=== PATIENT | male | born 1980 | race Caucasian/White ===

== ENCOUNTER 2020-04-28 11:36 | Emergency (ER) | payer OTHER, SELFPAY ==
--- NOTE | ~2020-04-28 | CT_ITS ---
EXAMINATION: CT brain wo con DATE: 04/28/2020 12:28 INDICATION: Headache and altered mental status and blurred vision. TECHNIQUE: Computed tomography (CT) of the head was performed without intravenous contrast. Sagittal and coronal reconstructions were performed. The mA was adjusted according to patient size. Iterative reconstruction technique was employed. The dose-length product was 605.33 mGy-cm. COMPARISON: head CT dated 10/04/14 FINDINGS: There is prominent white matter vasogenic edema which appears to spare the gary matter in the left fr ontal lobe. This surrounds an isodense intra-axial mass in the left frontal lobe which in places is d ifficult to differentiate from the gary matter but appears to measure approximately 2.8 x 2.4 x 2.1 c m. There is significant and effacement of local mass effect with distortion of the left lateral ventr icle with effacement of both the anterior and temporal horns and with up to 1.6 cm leftward displacem ent of the septum pellucidum between the anterior horns of the lateral ventricles. There is mild dila tion of the temporal horn of the right lateral ventricle as well as asymmetric widening of the left a mbient and prepontine cisterns consistent with at least some degree of uncal herniation. No acute int racranial hemorrhage, acute infarction or abnormal extra axial fluid collection. The orbits, paranasa l sinuses and mastoid air cells are normal. IMPRESSION: 1. Prominent vasogenic edema surrounding approximately 2-3 cm mass in the left frontal lobe. This res ults in significant local mass effect including anterior left right transtentorial and left-sided unc al herniation for which urgent neurosurgical consultation would be indicated. The masses concerning f or malignancy which could be either primary or metastatic and would consider pre and postcontrast bra in MRI for more definitive determination as clinically indicated. Dr. Colin discussed these findin gs with Dr. Cruz at 12:35 PM. Reviewed, dictated and finalized at location A. IMPRESSION: 1. Prominent vasogenic edema surrounding approximately 2-3 cm mass in the left frontal lobe. This results in significant local mass effect including anterior left right transtentorial and left-sided uncal herniation for which urgent neur osurgical consultation would be indicated. The masses concerning for malignancy which could be either primary or metastatic and would consider pre and postcon trast brain MRI for more definitive determination as clinically indicated. Dr. Colin discussed these findings with Dr. Cruz at 12:35 PM.
--- NOTE | ~2020-04-28 | XR_ITS ---
EXAMINATION: XR chest 1V EXAM DATE: 04/28/2020 12:30 INDICATION: Episodes of confusion. TECHNIQUE: Portable AP frontal chest x-ray was obtained. Comparison is made to prior examination from 10/04/2014. FINDINGS: The lungs are clear. There are no pleural effusions. The cardiomediastinal silhouette is within normal limits. There is no pneumothorax suspected. The bones and soft tissues are unremarkab le. There are cholecystectomy clips. There is no significant interval change. IMPRESSION: Unremarkable chest x-ray exam. Reviewed, dictated and finalized at location B.
[2020-04-28 11:38] VITALS: BP 140/79; PULSE 94; RESP 20; TEMP 36.7; O2SAT 99
--- NOTE | 2020-04-28 12:07 | ECG_ITS ---
Measurements Intervals N[place]el Rate: 76 P: 31 UT: 144 QRS: 17 QRSD: 97 T: -2 QT: 364 QTc: 410 Interpretive Statements SINUS RHYTHM BORDERLINE ST-T WAVE ABNORMALITY- INFERIOR LEADS BORDERLINE ECG Electronically Signed On 04-28-2020 12:23:05 CDT by Kalyan Varghese D.O.
[2020-04-28 12:28] LABS: Basophils Absolute Auto 0.1 K/mm3 (0.0-0.1); Basophils Percent Auto 0.7 % (0.2-1.2); Eosinophils Percent Auto 0.1 % (0-4.4); Hematocrit 49.2 % (42.0-52.0); Hemoglobin 16.2 g/dL (14.0-18.0); Immature Granulocyte Absolute 0.02 K/mm3 (0.00-0.031); Immature Granulocyte Percent A 0.3 % (0-0.5); Lymphocytes Absolute Auto 0.61 K/mm3 (0.9-3.2); Lymphocytes Percent Auto 8.6 % (18.3-44.2); Mean Corpuscular HGB Conc 32.9 g/dl (32-36); Mean Corpuscular Hemoglobin 29.4 pg (26-34); Mean Corpuscular Volume 89.3 fl (80-100); Mean Platelet Volume 10.5 fl (7.4-10.4); Monocytes Absolute Auto 0.4 K/mm3 (0.1-0.6); Neutrophils Percent Auto 84.3 % (45.5-73.1); Platelet Count Result 207 k/mm3 (150-375); Red Blood Count 5.51 M/mm3 (4.6-6.20); Red Cell Distribution Width 13.2 % (11.5-14.5); White Blood Count 7.1 K/mm3 (4.5-10.0)
[2020-04-28] MEDS: ONDANSETRON INJ 4 MG/2 ML VIAL IV PUSH ×2 (12:36→13:34)
[2020-04-28] MEDS: SODIUM CHLORIDE 0.9% IV 1,000 ML 999 ML IV CONT ×2 (12:36→13:34)
[2020-04-28 12:38] LABS: Prothrombin Time 13.1 Seconds (11.1-14.7)
[2020-04-28 12:39] LABS: Alanine Aminotransferase 74 U/L (4-50); Albumin Level 4.8 g/dL (3.5-5.1); Alkaline Phosphatase 77 U/L (38-126); Anion Gap 10 mmol/L (8-16); Aspartate Amino Transferase 35 U/L (17-59); Bilirubin,Total 0.9 mg/dL (0.2-1.3); Blood Urea Nitrogen 12 mg/dL (9-20); Carbon Dioxide 31 mmol/L (22-30); Chloride 101 mmol/L (98-107); Estimated CRCL calculation 80 ml/min; Estimated Glomerular Filt Rate > 60; Glucose 109 mg/dL (75-110); Partial Thromboplastin Time 29.5 SECONDS (22.3-36.8); Potassium 4.3 mmol/L (3.4-5.0); Sodium 142 mmol/L (137-145)
--- NOTE | 2020-04-28 12:42 | ED.NEUROSD ---
HPI - Neuro Symptoms/Deficit General Chief Complaint: Neuro Symptoms/Deficit Stated Complaint: periods of confusion Time Seen by Provider: 04/28/20 11:52 Source: patient and family Mode of arrival: ambulatory Limitations: no limitations History of Present Illness HPI Narrative: This patient is a 39 year old male previously healthy who presents for evaluation for headache and confusion. His states patient has been feeling fatigue for 2-3 months. He was assessed by his primary care physician with labs and they were unremarkable. She states this morning he woke up with a headache, nausea and vomiting at 8 am . She states she got a phone call that he did not show up for work. She found him at home confused. She reports he was having difficulty figuring out how to tie his shoes. Patient reports mild frontal headache and nausea. He denies numbness , tingling or focal weakness. HE denies chest pain, sob or abdominal pain. Related Data Home Medications Medication Instructions Recorded Confirmed No Home Medications 04/28/20 04/28/20 Allergies Allergy/AdvReac Type Severity Reaction Status Date / Time erythromycin base Allergy Unknown Rash Verified 04/28/20 11:54 Review of Systems Review of Systems: All systems reviewed & are unremarkable except as noted in HPI and below Constitutional: Constitutional: Reports fatigue ENT: Denies nasal congestion and Denies sore throat Cardiovascular: Cardiovascular: Denies chest pain Respiratory: Respiratory: Denies cough and Denies dyspnea Neurologic: Reports headache(s) PMFSH Past Medical History Medical History (Updated 04/28/20 @ 19:07 by Aggie Cruz MD) Patient denies medical problems Surgical History Surgical History (Updated 04/28/20 @ 13:06 by Aggie Cruz MD) Hx of cholecystectomy Social History Social History (Updated 04/28/20 @ 13:06 by Aggie Cruz MD) Smoking status: Never smoker Alcohol intake: never Substance use: never Exam Const: General: no acute distress Orientation/consciousness: patient oriented x3 HENMT: Head: normocephalic and atraumatic Face and sinus: face symmetric Mouth: Yes Normal oral and palatal mucosa present, Yes lip normal, Yes oropharynx normal and Yes moist mucous membranes Eyes: Pupils: Equal, round and reactive pupils present EOM: EOMs intact bilaterally Chest: Chest palpation & inspection: normal inspection of the chest Resp: Effort & Inspection: normal respiratory effort and no retractions Auscultation: clear to auscultation bilaterally GI: GI Palp: Yes Soft to palpation, No Tenderness to palpation present (GI), No Guarding due to palpation present (GI) and No Rigid due to palpation Neuro: General: patient oriented x3, moves all extremities, no meningeal signs and CN's II-XI intact bilaterally Speech: normal speech Psych: Mental Status: mental status grossly normal Affect: normal affect Course Reevaluation(s) Reevaluation #1: I have discussed with patient and his CT findings and he should be transferred to higher level with neurosurgery. They request to go to [facility]. Date: 04/28/20 Time: 13:00 Reevaluation #2: PAtient is sleeping but he continued to be oriented. Date: 04/28/20 Time: 15:00 Consultations Consultation #1: I discussed patient case and CT with DR. Lagunas. He also reviewed cT. HE accepts patient to the floor on neurosurgery service. He agrees with patient getting solumedrol and keppra. Date: 04/28/20 Time: 13:15 Vital Signs Vital signs: Vital Signs Temperature 98.1 F 04/28/20 11:38 Pulse Rate 94 04/28/20 11:38 Respiratory Rate 20 04/28/20 11:38 Blood Pressure 140/79 04/28/20 11:38 Pulse Oximetry 99 04/28/20 11:38 Temperature 98.1 F 04/28/20 11:38 Pulse Rate 70 04/28/20 17:12 Respiratory Rate 18 04/28/20 17:12 Blood Pressure 125/74 04/28/20 17:12 Pulse Oximetry 100 04/28/20 17:12 MDM - Neuro Symptoms/Deficit La
[2020-04-28 12:48] LABS: Ethanol < 10 mg/dL (<10)
[2020-04-28 12:51] LABS: Troponin I < 0.012 ng/mL (0.000-0.034)
[2020-04-28] MEDS: levETIRAcetam 1000MG/NACL100ML 1,000 MG/100 ML BAG 400 MG IVPB (13:38)
[2020-04-28 14:00] VITALS: BP 126/86; PULSE 74; RESP 21; O2SAT 100
--- NOTE | 2020-04-28 15:23 | PC.NURSE ---
Asked pt for urine sample, left urinal at bedside
[2020-04-28 16:00] LABS: Glucose Point of Care 92 (65-105)
[2020-04-28 16:22] LABS: Add Urine Microscopic? NO; Appearance Urine Clear (Clear); Bilirubin Urine Negative (Negative); Blood Urine Negative (Negative); Color Urine Yellow (Yellow); Glucose Urine UA Negative (Negative); Ketones Urine Negative (Negative); Leukocyte Esterase Ur Negative LEU/UL (Negative); Nitrate Urine Negative (Negative); Protein Urine Negative (Negative); Specific Grav Ur 1.015 (1.001-1.035); Urobilinogen Urine Negative mg/dL (<2.0)
[2020-04-28 16:46] LABS: Amphetamine Screen Urine Negative (Negative); Barbiturate Screen Urine Negative (Negative); Benzodiazepines Screen Urine Negative (Negative); Cannabinoid Screen Urine Negative (Negative); Cocaine Screen Urine Negative (Negative); Methadone Screen Urine Negative (Negative); Opiate Screen Urine Negative (Negative); Phencyclidine Screen Urine Negative (Negative)
[2020-04-28 17:12] VITALS: BP 125/74; PULSE 70; RESP 18; O2SAT 100
== END 2020-04-28 19:11 | disposition short-term general hospital (02) ==
PROVIDERS: Emergency Provider General Practice
DX: G93.9 Disorder of brain, unspecified (principal); R94.31 Abnormal electrocardiogram [ECG] [EKG]
CPT/HCPCS: 36415; 51701; 70450; 71045; 80053; 80307; 81003; 82948; 84443; 84484; 85025; 85610; 85730; 93005; 96361; 96374; 96375; 99285; J1100; J1953; J2405; J7030

== ENCOUNTER → 2020-11-02 15:40 | Outpatient (CLI) | payer OTHER, SELFPAY ==
--- NOTE | ~2020-11-02 | MR_ITS ---
In EXAMINATION: MR brain/brain stem wo/w con DATE: 11/02/2020 16:56 INDICATION: Meningioma. TECHNIQUE: Magnetic resonance imaging (MRI) of the brain and brainstem was performed without and with 20 mL MultiHance intravenous contrast. Sequences included sagittal and axial T1-weighted FSE, axial diffusion-weighted FS EPI, axial T2*-weighted GRE, axial T2-weighted FLAIR Propeller, and axial T2-we ighted Propeller. Postcontrast sequences included axial, sagittal, and coronal T1-weighted FSE. Appar ent diffusion coefficient (ADC) maps were created. COMPARISON: Head CT 04/28/2020 FINDINGS: There are changes of left frontal lobe mass resection with old blood products in the resect ion bed. There is a thick layer of enhancement overlying the brain at the site of resection. There is no acute ischemic infarct. 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 The ventricles are normal in size. The orbits are normal. The paranasal sinuses are clear. The mastoi d air cells are normal. IMPRESSION: 1. Changes of left frontal lobe mass resection. A thick layer of enhancement overlying the brain at t he site of the resection may be granulation tissue. Residual or recurrent neoplasm cannot be excluded . Reviewed, dictated and finalized at location A. IMPRESSION: 1. Changes of left frontal lobe mass resection. A thick layer of enhancement ov erlying the brain at the site of the resection may be granulation tissue. Resid ual or recurrent neoplasm cannot be excluded.
[2020-11-02 16:09] LABS: Estimated Glomerular Filt Rate 56
== END ==
DX: D32.9 Benign neoplasm of meninges, unspecified (principal)
CPT/HCPCS: 70553; A9577

== ENCOUNTER 2024-07-24 14:10 | Outpatient (CLI) | payer OTHER, SELFPAY ==
--- NOTE | ~2024-07-24 | XR_ITS ---
EXAMINATION: XR hand LT min 3V DATE: 07/24/2024 14:38 INDICATION: Bilateral hand pain TECHNIQUE: 1. Posteroanterior, oblique and lateral views of the left hand were obtained. 2. Posteroanterior, oblique and lateral views of the right hand were obtained. COMPARISON: None. FINDINGS: Bone alignment is normal at the bilateral hands and wrists. No fractures. Typical distribution of min imal to mild polyarticular osteoarthritis at both hands most prominent at the right first carpometaca rpal joint and at several of the bilateral distal interphalangeal joints. No erosions to suggest infl ammatory arthritis. Soft tissues are unremarkable. IMPRESSION: 1. 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 Reviewed, dictated and finalized at location B. TRUCK MECHANIC
--- NOTE | ~2024-07-24 | XR_ITS ---
XR hand RT min 3V Ordering provider: Parish Santoyo History: . Pain in both hands . Comparison: The knee is FINDINGS: BONES: No acute fracture or dislocation. JOINT SPACES: slight narrowing of the distal interphalangeal joints. SOFT TISSUES: Normal. IMPRESSION: No acute osseous abnormality right hand. Osteoarthritic changes of the distal interphalangeal joint more prominent in the third and fourth fin pk. Reviewed, dictated and finalized at location A. ING ROOM OPERATOR IMPRESSION: No acute osseous abnormality right hand. Osteoarthritic changes of the distal interphalangeal joint more prominent in th e third and fourth finger.
== END 2024-07-24 14:11 | disposition home or self-care (01) ==
DX: M19.041 Primary osteoarthritis, right hand (principal); M19.042 Primary osteoarthritis, left hand
CPT/HCPCS: 73130